=== PATIENT | female | born 1945 | race Caucasian/White ===

== ENCOUNTER 2016-08-08 18:43 | Emergency (ER) | payer MEDICARE, BC ==
[2016-08-08] MEDS ORDERED: NS 0.9% 1000 ML* 2,000 ML IV ONE (20:57)
[2016-08-08 21:44] LABS: Hematocrit 29 % (35-47); Hemoglobin 9.4 g/dl (12.0-16.0); Mean Corpuscular HGB Conc 32 g/dl (31-36); Mean Corpuscular Hemoglobin 27 pg (27-31); Mean Corpuscular Volume 83 fL (80-97); Mean Platelet Volume 8 um3 (7.4-10.4); Red Blood Count 3.51 10^6/ul (4.0-5.4); Red Cell Distribution Width 21 % (10.5-15); White Blood Count 4.5 10^3/ul (3.5-10.8)
[2016-08-08 21:56] LABS: Albumin 3.2 g/dL (3.2-5.2); BUN/Creatinine Ratio 23.8 (8-20); Calcium 9.3 mg/dL (8.6-10.3); EGFR African American 66.3 (>60); EGFR Non-African American 51.5 (>60); Globulin 3.1 g/dL (2-4); Potassium 4.3 mmol/L (3.5-5.0); Total Bilirubin 0.6 mg/dL (0.2-1.0); Total Protein 6.3 g/dL (6.4-8.9)
--- NOTE | 2016-08-08 22:00 | RAD ---
HISTORY: Fever COMPARISONS: August 30, 2015 VIEWS:1: Single frontal portable view of the chest at 9:40 PM FINDINGS: LINES AND TUBES: There is a right-sided chest port from a subclavian approach with tip overlying the superior vena cava. CARDIOMEDIASTINAL SILHOUETTE: The cardiomediastinal silhouette is normal for portable technique. PLEURA: There is a small right pleural effusion LUNG PARENCHYMA: There is patchy alveolar opacification of the right lung base ABDOMEN: The upper abdomen is clear. There is no subphrenic gas. BONES AND SOFT TISSUES: No bone or soft tissue abnormalities are noted. IMPRESSION: SMALL RIGHT PLEURAL EFFUSION WITH PATCHY RIGHT BASILAR ATELECTASIS VERSUS CONSOLIDATION
[2016-08-09 00:08] VITALS: BP 110/55
[2016-08-09 00:35] LABS: Urine Bacteria Absent (Absent); Urine Bilirubin Negative (Negative); Urine Glucose Negative (Negative); Urine Nitrite Negative (Negative)
[2016-08-09] MEDS ORDERED: Sulfamethox/Trimethoprim DS 800/160* TAB PO ONE (00:53)
--- NOTE | 2016-08-09 01:19 | ED ---
Vadim Buitrago Aidan, scribed for Cresencio Musa on 08/08/16 at 2123 . HPI Febrile Illness - HPI Summary HPI Summary: 71 y/o female presents to the ED with a complaint of an acute, constant, mild fever of 100.7 that began today. Yesterday, she had some abdominal pain that was alleviated by a drainage procedure on the left side to drain 1500ml of fluid around the stomach. Pt is currently receiving chemotherapy for stage 4 breast cancer that has metastasized to the omentum, bone, and lungs and was advised to come in for her fever. Hx of portocath. Pt denies any sore throat or leg edema. - History of Current Complaint Chief Complaint: EDFever Time Seen by Provider: 08/08/16 20:29 Hx Obtained From: Patient, Family/Tower Foreman - Onset/Duration: Started Hours Ago, Still Present Timing: Constant - fever of 100.7 Temperature: 100.7 F - 100.5 B4 Initial Severity: Mild Current Severity: Mild Pain Intensity: 0 Pain Scale Used: 0-10 Numeric Aggravating Factors: Unknown - however, possibly chemotherapy Alleviating Factors: Other: - unknown Associated Signs and Symptoms: Other: - abdominal pain yesterday that subsided after her drainage procedure - Risk Factors Serious Bacterial Infection Risk Factors: Chemotherapy - Allergy/Home Medications Allergies/Adverse Reactions: Allergies Allergy/AdvReac Type Severity Reaction Status Date / Time Clarithromycin Allergy Intermediate Nausea And Verified 08/08/16 20:09 Vomiting Adhesive Tape Allergy Mild Itching Verified 08/08/16 20:09 Levofloxacin [From Levaquin] Allergy Unknown Verified 08/08/16 20:09 Reaction Details Niacin Allergy Flushing Verified 08/08/16 20:09 Simvastatin [From Zocor] Allergy Palpitation Verified 08/08/16 20:09 s PMH/Surg Hx/FS Hx/Imm Hx Endocrine/Hematology History: Denies: Hx Diabetes, Hx Systemic Lupus Erythematosus Cardiovascular History: Denies: Hx Congestive Heart Failure, Hx Hypertension, Hx Pacemaker/ICD Comment Only: Other Cardiovascular Problems/Disorders - denies chest pain any problems Respiratory History: Reports: Other Respiratory Problems/Disorders - RIGHT LUNG NODULE BONE CANCER, CHRONIC RIGHT PLEURAL EFFUSION GI History: Reports: Hx Gastroesophageal Reflux Disease, Other GI Disorders - GERD History: Denies: Hx Dialysis, Hx Renal Disease Musculoskeletal History: Reports: Hx Arthritis - HANDS, Other Musculoskeletal History - CANCER BILAT FEMUR, SPINE, BILAT HUMERUS Denies: Hx Rheumatoid Arthritis Sensory History: Reports: Hx Contacts or Glasses - READING GLASSES Denies: Hx Hearing Aid Opthamlomology History: Reports: Hx Contacts or Glasses - READING GLASSES Psychiatric History: Reports: Hx Depression Denies: Hx Panic Disorder - Cancer History Cancer Type, Location and Year: Breast CA first dx 2001, Bone dx September 2011, spine, several ribs left femur Hx Chemotherapy: Yes - CURRENTLY TAKING PO AND Q12 WEEK INFUSION- 02/02/15 Hx Radiation Therapy: Yes Hx Palliative Cancer Treatment: Yes - Surgical History Surgery Procedure, Year, and Place: Hysterectomy 1989. lumpectomy R breast 2001. POWER PORT 2001, 2011 [facility] Hx Anesthesia Reactions: No Infectious Disease History: No Infectious Disease History: Denies: Traveled Outside the [place] in Last 30 Days - Family History Known Family History: Positive: Other - [place] - Social History Occupation: Retired Lives: With Family Alcohol Use: None Substance Use Type: Reports: None Hx Tobacco Use: No Smoking Status (MU): Former Smoker Type: Cigarettes Length of Time of Smoking/Using Tobacco: 17 YRS Have You Smoked in the Last Year: No Review of Systems Positive: Fever. Negative: Chills, Fatigue, Skin Diaphoresis Eyes: Negative ENT: Negative Cardiovascular: Negative Respiratory: Negative Positive: Abdominal Pain - subsided. Negative: Vomiting, Diarrhea, Nausea Genitourinary: Negative Musculoskeletal: Negative Skin: Negative Neurological: Negative Psychological: Normal All Other Systems Reviewed And Are Negative: Yes Physical Exam Triage Information Reviewed: Yes Vital Signs On Initial Exam: Initial Vitals Temp Pulse Resp BP Pulse Ox 100.7 F 110 20 106/85 98 08/08/16 18:46 08/08/16 18:46 08/08/16 18:46 08/08/16 18:46 08/08/16 18:46 Vital Signs Reviewed: Yes Appearance: Positive: Well-Appearing, No Pain Distress Skin: Positive: Warm, Skin Color Reflects Adequate Perfusion, Dry Head/Face: Positive: Normal Head/Face Inspection Eyes: Positive: Normal ENT: Positive: Normal ENT inspection Neck: Positive: Supple, Nontender Respiratory/Lung Sounds: Positive: Clear to Auscultation, Breath Sounds Present Cardiovascular: Positive: RRR Abdomen Description: Positive: Nontender, Soft, Other: - dressing on left flank Bowel Sounds: Positive: Present Musculoskeletal: Positive: Normal Neurological: Positive: Normal Psychiatric: Positive: Affect/Mood Appropriate Diagnostics - Vital Signs Vital Signs Temp Pulse Resp BP Pulse Ox 08/08/16 20:30 99 F 109 16 115/52 96 08/08/16 20:00 99.7 F 112 16 97/41 97 08/08/16 18:46 100.7 F 110 20 106/85 98 - Laboratory Result Diagrams: 08/08/16 21:31 08/08/16 21:31 Lab Statement: Any lab studies that have been ordered have been reviewed, and results considered in the medical decision making process. - Radiology CHEST XR Xray Interpretation: Positive (See Comments) - IMPRESSION: SMALL RIGHT PLEURAL EFFUSION WITH PATCHY RIGHT BASILAR ATELECTASIS VERSUS CONSOLIDATION Radiology Interpretation Completed By: Radiologist Course/Dx - Course Course Of Treatment: This is a 71 y/o patient with a mild fever of 100.7. She has metastatic breast cancer that has metastasized to the omentum, bone, and lungs. Yesterday, she had 1500ml of fluid surrounding her stomach drained. The drainage procedure alleviated abdominal pain she had. Chest x-ray indicated a small right pleural effusion with patchy right basilar atelectasis. She had paracentesis. She will be discharged with bactrim, unlikely SBP. Dx of UTI and metastatic breast CA. - Diagnoses Provider Diagnoses: UTI (urinary tract infection), Metastatic breast cancer Discharge - Discharge Plan Condition: Stable Disposition: HOME Discharge Disposition Comment: Please follow up with your PCP and return if symptoms worsen within 72hrs. Prescriptions: Sulfamethox/Trimethoprim DS* [Bactrim DS 800/160 TAB*] 1 tab PO BID 7 Days Sulfamethox/Trimethoprim DS* [Bactrim DS 800/160 TAB*] 1 tab PO BID #14 tab The documentation as recorded by the Vadim resendez Aidan accurately reflects the service I personally performed and the decisions made by , Cresencio Musa.
== END 2016-08-09 01:45 | disposition home or self-care (01) ==
LOC: ED 18:43
DX: N39.0 Urinary tract infection, site not specified (principal); C50.919 Malignant neoplasm of unspecified site of unspecified female breast; Z92.21 Personal history of antineoplastic chemotherapy; R10.84 Generalized abdominal pain
CPT/HCPCS: 36415; 71010; 80053; 81003; 81015; 83605; 83880; 84484; 85025; 85610; 85730; 87040; 87086; 87502; 99284; A9270-GY; J1642

== ENCOUNTER 2016-08-19 11:39 | Inpatient (IN) | payer MEDICARE, BC ==
--- NOTE | 2016-08-19 13:41 | RAD ---
INDICATION: Altered mental status. COMPARISON: Comparison is made with a prior CT of the chest from August 02, 2016 and a prior chest x-ray study from August 15, 2016. TECHNIQUE: A portable view of the chest was obtained. FINDINGS: Cardiac and mediastinal contours appear to be within normal limits. There is a power port central venous catheter present on the right side. The catheter tip projects over the right atrium. There is a small right pleural effusion and basilar infiltrate. The lungs are underinflated. There is sclerotic change within the osseous structures consistent with metastatic disease as noted on the prior CT of the chest. IMPRESSION: 1. SMALL RIGHT PLEURAL EFFUSION AND BASILAR INFILTRATE. 2. SCLEROTIC OSSEOUS METASTATIC DISEASE.
[2016-08-19 14:06] LABS: Hematocrit 25 % (35-47); Hemoglobin 8.4 g/dl (12.0-16.0); Mean Corpuscular HGB Conc 33 g/dl (31-36); Mean Corpuscular Hemoglobin 27 pg (27-31); Mean Corpuscular Volume 83 fL (80-97); Red Blood Count 3.06 10^6/ul (4.0-5.4); Red Cell Distribution Width 22 % (10.5-15); White Blood Count 6.6 10^3/ul (3.5-10.8)
[2016-08-19 14:07] LABS: Comments Flag Yes
[2016-08-19 14:08] LABS: Add Diff/Slide Review? Slide Review Added
[2016-08-19 14:22] LABS: Albumin 2.7 g/dL (3.2-5.2); BUN/Creatinine Ratio 28.2 (8-20); C Reactive Protein 272.64 mg/L (< 5.00); Calcium 8.5 mg/dL (8.6-10.3); EGFR African American 39.9 (>60); Potassium 4.2 mmol/L (3.5-5.0); Total Bilirubin 4.4 mg/dL (0.2-1.0); Total Protein 5.7 g/dL (6.4-8.9)
[2016-08-19 14:24] LABS: Troponin I 0.02 ng/mL (<0.04)
[2016-08-19 14:29] LABS: Mean Platelet Volume 11 um3 (7.4-10.4)
[2016-08-19] MEDS ORDERED: NS 0.9% 1000 ML* 1,000 ML IV ONE (14:45)
[2016-08-19] MEDS ORDERED: Cefepime(*) 1 GM in NS 0.9% 50 ML* 50 ML IVPB ONE (14:47)
[2016-08-19] MEDS ORDERED: NS 0.9% 50 ML* 50 ML ONE (15:12)
[2016-08-19] MEDS ORDERED: LORazepam TAB(*) 0.5 MG PO PRN (16:38)
[2016-08-19] MEDS ORDERED: oxyCODONE TAB* 5 MG TAB PO PRN (16:38)
[2016-08-19] MEDS: Cefepime(*) 2 GM in NS 0.9% 50 ML* 50 ML IVPB SCH (17:42)
[2016-08-19] MEDS: Omeprazole CAP* 20 MG PO SCH (19:45)
[2016-08-19] MEDS: NS 0.9% 1000 ML* 1,000 ML IV SCH (19:57)
[2016-08-19 21:47] LABS: Urine Bacteria Absent (Absent); Urine Bilirubin 1+ (Negative); Urine Glucose 1+(50 mg/dL) (Negative); Urine Nitrite Negative (Negative)
--- NOTE | 2016-08-19 22:18 | ED ---
Chip Buitrago Michael, scribed for Aydin Haines MD on 08/19/16 at 1447 . Abdominal Pain/Female - HPI Summary HPI Summary: 71 y/o female was BIBA to the ED presenting with constant abd pain for the past 2 weeks. The pt reports that the pain is located in the bilateral LQ. She has a hx of ascites and had diagnostic and therapeutic paracentesis 5 days ago with resultant ca cells in the ascitic fluid. Pt with hx of Stage IV breast ca metastatic to bone, lung. She also c/o SOB, nausea, vomiting for 2 weeks, and decreased hydration. She is currently undergoing chemotherapy once per week. Pt with recent diagnosis of PNA and currently being treated with abx. - History of Current Complaint Chief Complaint: EDAbdPain Stated Complaint: SOB Time Seen by Provider: 08/19/16 13:08 Hx Obtained From: Patient, EMS, Medical Records Onset/Duration: Gradual Onset, Lasting Weeks, Still Present Timing: Constant Severity Initially: Mild Severity Currently: Mild Pain Intensity: 3 Pain Scale Used: 0-10 Numeric Location: Discrete At: RLQ, Discrete At: LLQ Radiates: No Aggravating Factor(s): Nothing Alleviating Factor(s): Nothing Associated Signs and Symptoms: Positive: Nausea, Vomiting, Other: - abd pain. dehydration. fever. Allergies/Adverse Reactions: Allergies Allergy/AdvReac Type Severity Reaction Status Date / Time Clarithromycin Allergy Intermediate Nausea And Verified 08/14/16 09:03 Vomiting Adhesive Tape Allergy Mild Itching Verified 08/14/16 09:03 Levofloxacin [From Levaquin] Allergy Unknown Verified 08/14/16 09:03 Reaction Details Niacin Allergy Flushing Verified 08/14/16 09:03 Simvastatin [From Zocor] Allergy Palpitation Verified 08/14/16 09:03 s Home Medications: Home Medications [id number] [Beano] 1 tab PO DAILY PRN 08/19/16 [History Confirmed ] Aspirin EC Low Dose* [Ecotrin EC Low Dose 81 MG*] 81 mg PO DAILY 08/19/16 [ History Confirmed 08/19/16] Docusate CAP* [Colace Cap*] 100 - 200 mg PO BEDTIME PRN 08/19/16 [History Confirmed 08/19/16] Ibuprofen TAB* [Advil TAB*] 400 mg PO DAILY PRN 08/19/16 [History Confirmed ] Lactulose* 30 ml PO BID 08/19/16 [History Confirmed 08/19/16] Omeprazole CAP* [Prilosec CAP* 20 MG] 40 mg PO BID 08/19/16 [History Confirmed 08/19/16] Polyethylene Glycol 3350* [Miralax*] 17 gm PO DAILY PRN 08/19/16 [History Confirmed 08/19/16] Scopolamine 1.5 mg* PATCH* [Transderm-Scop 1.5 mg Patch*] 1 patch TRANSDERM Q72H PRN 08/19/16 [History Confirmed 08/19/16] Simethicone [Gas-X] 80 mg PO DAILY PRN 08/19/16 [History Confirmed 08/19/16] PMH/Surg Hx/FS Hx/Imm Hx Endocrine/Hematology History: Denies: Hx Diabetes, Hx Systemic Lupus Erythematosus Cardiovascular History: Denies: Hx Congestive Heart Failure, Hx Hypertension, Hx Pacemaker/ICD Comment Only: Other Cardiovascular Problems/Disorders - POWER PORT, RIGHT Respiratory History: Reports: Hx Pneumonia, Other Respiratory Problems/ Disorders - RIGHT LUNG NODULE BONE CANCER, CHRONIC RIGHT PLEURAL EFFUSION GI History: Reports: Hx Gastroesophageal Reflux Disease, Other GI Disorders - GERD History: Reports: Other Problems/Disorders - UTI Denies: Hx Dialysis, Hx Renal Disease Musculoskeletal History: Reports: Hx Arthritis - HANDS, Other Musculoskeletal History - CANCER BILAT FEMUR, SPINE, BILAT HUMERUS Denies: Hx Rheumatoid Arthritis Sensory History: Reports: Hx Contacts or Glasses - READING GLASSES Denies: Hx Hearing Aid Opthamlomology History: Reports: Hx Contacts or Glasses - READING GLASSES Psychiatric History: Reports: Hx Depression Denies: Hx Panic Disorder - Cancer History Cancer Type, Location and Year: Breast CA first dx 2001, Bone dx September 2011, spine, several ribs left femur Hx Chemotherapy: Yes - CURRENTLY TAKING PO AND Q12 WEEK INFUSION- 02/02/15 Hx Radiation Therapy: Yes Hx Palliative Cancer Treatment: Yes - Surgical History Surgery Procedure, Year, and Place: Hysterectomy 1989. lumpectomy R breast 2001. POWER PORT 2001, 2011 [facility] Hx Anesthesia Reactions: No Infectious Disease History: Denies: Traveled Outside the [place] in Last 30 Days - Family History Known Family History: Positive: Other - [place] - Social History Occupation: Retired Lives: With Family Alcohol Use: None Substance Use Type: Reports: Prescribed Hx Tobacco Use: No Smoking Status (MU): Former Smoker Type: Cigarettes Length of Time of Smoking/Using Tobacco: 17 YRS Have You Smoked in the Last Year: No Review of Systems Positive: Shortness Of Breath Positive: Abdominal Pain, Vomiting, Nausea Positive: other - decreased urination Positive: Weakness All Other Systems Reviewed And Are Negative: Yes Physical Exam Triage Information Reviewed: Yes Vital Signs On Initial Exam: Initial Vitals Temp Pulse Resp BP Pulse Ox 99.1 F 87 18 102/43 100 08/19/16 11:52 08/19/16 11:52 08/19/16 11:52 08/19/16 11:52 08/19/16 11:52 Vital Signs Reviewed: Yes Appearance: Positive: Ill-Appearing - chronic ill appearing. cachectic Skin: Positive: Warm, Skin Color Reflects Adequate Perfusion, Dry, Other - small pin point macular red rash on mid chest. Head/Face: Positive: Normal Head/Face Inspection Eyes: Positive: EOMI, LAURA, Conjunctiva Clear ENT: Positive: Pharynx normal, TMs normal Neck: Positive: Supple, Nontender Respiratory/Lung Sounds: Positive: Other - mild diffuse crackles. Cardiovascular: Positive: RRR, Pulses are Symmetrical in both Upper and Lower Extremities. Negative: Murmur, Rub Abdomen Description: Positive: No Organomegaly, Soft, Distended - with moderate fluid, Other: - + generalized ttp. Negative: Guarding, Peritoneal Signs Bowel Sounds: Positive: Present Musculoskeletal: Positive: Strength/ROM Intact, Other - ecchymosis of dorsum 5th metacarpal with no tenderness to palpation. nml ROM. no deformity. Neurological: Positive: Sensory/Motor Intact, Alert, Oriented to Person Place, Time, Normal Gait. Negative: Cerebellar Dysfunction Psychiatric: Positive: Affect/Mood Appropriate - [place] Coma Scale Coma Scale Total: 15 Diagnostics - Vital Signs Vital Signs Temp Pulse Resp BP Pulse Ox 08/19/16 12:00 87 100 08/19/16 11:58 87 100 08/19/16 11:52 99.1 F 87 18 102/43 100 - Laboratory Lab Results: Lab Results 08/19/16 08/19/16 08/19/16 Range/Units 13:03 13:03 13:03 WBC 6.6 (3.5-10.8) 10^3/ul RBC 3.06 L (4.0-5.4) 10^6/ul Hgb 8.4 L (12.0-16.0) g/dl Hct 25 L (35-47) % MCV 83 (80-97) fL MCH 27 (27-31) pg MCHC 33 (31-36) g/dl RDW 22 H (10.5-15) % Plt Count 15 L* D (150-450) 10^3/ul MPV 11 H (7.4-10.4) um3 Neut % (Auto) 86.7 H (38-83) % Lymph % (Auto) 6.2 L (25-47) % [place] % (Auto) 5.9 (1-9) % Eos % (Auto) 0.5 (0-6) % Baso % (Auto) 0.7 (0-2) % Absolute Neuts (auto) 5.7 (1.5-7.7) 10^3/ul Absolute Lymphs (auto) 0.4 L (1.0-4.8) 10^3/ul Absolute Monos (auto) 0.4 (0-0.8) 10^3/ul Absolute Eos (auto) 0 (0-0.6) 10^3/ul Absolute Basos (auto) 0 (0-0.2) 10^3/ul Absolute Nucleated RBC 0.01 10^3/ul Nucleated RBC % 0.2 Hem Pathologist Commnt Pending INR (Anticoag Therapy) 2.49 H (0.89-1.11) APTT Cancelled Sodium 128 L (133-145) mmol/L Potassium 4.2 (3.5-5.0) mmol/L Chloride 99 L (101-111) mmol/L Carbon Dioxide 19 L (22-32) mmol/L Anion Gap 10 (2-11) mmol/L BUN 46 H (6-24) mg/dL Creatinine 1.63 H (0.51-0.95) mg/dL Est GFR ( Amer) 39.9 (>60) Est GFR (Non-Af Amer) 31.0 (>60) BUN/Creatinine Ratio 28.2 H (8-20) Glucose 87 (70-100) mg/dL Lactic Acid (0.5-2.0) mmol/L Calcium 8.5 L (8.6-10.3) mg/dL Total Bilirubin 4.40 H (0.2-1.0) mg/dL AST 327 H (13-39) U/L ALT 155 H (7-52) U/L Alkaline Phosphatase 189 H (34-104) U/L Lactate Dehydrogenase 640 H (140-271) U/L Total Creatine Kinase 40 (10-223) U/L CK-MB (CK-2) 1.3 (0.6-6.3) ng/mL Troponin I 0.02 (<0.04) ng/mL C-Reactive Protein 272.64 H (< 5.00) mg/L Total Protein 5.7 L (6.4-8.9) g/dL Albumin 2.7 L (3.2-5.2) g/dL Globulin 3.0 (2-4) g/dL Albumin/Globulin Ratio 0.9 L (1-3) Urine Color Urine Appearance Urine pH (5-9) Ur Specific [place] (1.010-1.030) Urine Protein (Negative) Urine Ketones (Negative) Urine Blood (Negative) Urine Nitrate (Negative) Urine Bilirubin (Negative) Urine Urobilinogen (Negative) Ur Leukocyte Esterase (Negative) Urine WBC (Auto) (Absent) Urine RBC (Auto) (Absent) Ur Squamous Epith Cells (Absent) Ur Renal Epithelial Cell (Absent) Urine Bacteria (Absent) Hyaline Casts (Absent) Urine Glucose (Negative) Blood Type Antibody Screen 08/19/16 08/19/16 08/19/16 Range/Units 13:03 13:03 13:09 WBC (3.5-10.8) 10^3/ul RBC (4.0-5.4) 10^6/ul Hgb (12.0-16.0) g/dl Hct (35-47) % MCV (80-97) fL MCH (27-31) pg MCHC (31-36) g/dl RDW (10.5-15) % Plt Count (150-450) 10^3/ul MPV (7.4-10.4) um3 Neut % (Auto) (38-83) % Lymph % (Auto) (25-47) % [place] % (Auto) (1-9) % Eos % (Auto) (0-6) % Baso % (Auto) (0-2) % Absolute Neuts (auto) (1.5-7.7) 10^3/ul Absolute Lymphs (auto) (1.0-4.8) 10^3/ul Absolute Monos (auto) (0-0.8) 10^3/ul Absolute Eos (auto) (0-0.6) 10^3/ul Absolute Basos (auto) (0-0.2) 10^3/ul Absolute Nucleated RBC 10^3/ul Nucleated RBC % Hem Pathologist Commnt INR (Anticoag Therapy) (0.89-1.11) APTT Sodium (133-145) mmol/L Potassium (3.5-5.0) mmol/L Chloride (101-111) mmol/L Carbon Dioxide (22-32) mmol/L Anion Gap (2-11) mmol/L BUN (6-24) mg/dL Creatinine (0.51-0.95) mg/dL Est GFR ( Amer) (>60) Est GFR (Non-Af Amer) (>60) BUN/Creatinine Ratio (8-20) Glucose (70-100) mg/dL Lactic Acid 2.1 H* (0.5-2.0) mmol/L Calcium (8.6-10.3) mg/dL Total Bilirubin (0.2-1.0) mg/dL AST (13-39) U/L ALT (7-52) U/L Alkaline Phosphatase (34-104) U/L Lactate Dehydrogenase (140-271) U/L Total Creatine Kinase (10-223) U/L CK-MB (CK-2) (0.6-6.3) ng/mL Troponin I (<0.04) ng/mL C-Reactive Protein (< 5.00) mg/L Total Protein (6.4-8.9) g/dL Albumin (3.2-5.2) g/dL Globulin (2-4) g/dL Albumin/Globulin Ratio (1-3) Urine Color Millicent Urine Appearance Cloudy Urine pH 5.0 (5-9) Ur Specific [place] 1.020 (1.010-1.030) Urine Protein 1+(30 mg/dl) H (Negative) Urine Ketones Trace H (Negative) Urine Blood Negative (Negative) Urine Nitrate Negative (Negative) Urine Bilirubin 1+ H (Negative) Urine Urobilinogen Positive H (Negative) Ur Leukocyte Esterase Negative (Negative) Urine WBC (Auto) 2+(11-20/hpf) H (Absent) Urine RBC (Auto) Trace(0-2/hpf) (Absent) Ur Squamous Epith Cells Present H (Absent) Ur Renal Epithelial Cell Present H (Absent) Urine Bacteria Absent (Absent) Hyaline Casts Present H (Absent) Urine Glucose 1+(50 mg/dl) H (Negative) Blood Type AB Positive Antibody Screen Negative 08/19/16 Range/Units 15:20 WBC (3.5-10.8) 10^3/ul RBC (4.0-5.4) 10^6/ul Hgb (12.0-16.0) g/dl Hct (35-47) % MCV (80-97) fL MCH (27-31) pg MCHC (31-36) g/dl RDW (10.5-15) % Plt Count (150-450) 10^3/ul MPV (7.4-10.4) um3 Neut % (Auto) (38-83) % Lymph % (Auto) (25-47) % [place] % (Auto) (1-9) % Eos % (Auto) (0-6) % Baso % (Auto) (0-2) % Absolute Neuts (auto) (1.5-7.7) 10^3/ul Absolute Lymphs (auto) (1.0-4.8) 10^3/ul Absolute Monos (auto) (0-0.8) 10^3/ul Absolute Eos (auto) (0-0.6) 10^3/ul Absolute Basos (auto) (0-0.2) 10^3/ul Absolute Nucleated RBC 10^3/ul Nucleated RBC % Hem Pathologist Commnt INR (Anticoag Therapy) (0.89-1.11) APTT 55.4 H Sodium (133-145) mmol/L Potassium (3.5-5.0) mmol/L Chloride (101-111) mmol/L Carbon Dioxide (22-32) mmol/L Anion Gap (2-11) mmol/L BUN (6-24) mg/dL Creatinine (0.51-0.95) mg/dL Est GFR ( Amer) (>60) Est GFR (Non-Af Amer) (>60) BUN/Creatinine Ratio (8-20) Glucose (70-100) mg/dL Lactic Acid (0.5-2.0) mmol/L Calcium (8.6-10.3) mg/dL Total Bilirubin (0.2-1.0) mg/dL AST (13-39) U/L ALT (7-52) U/L Alkaline Phosphatase (34-104) U/L Lactate Dehydrogenase (140-271) U/L Total Creatine Kinase (10-223) U/L CK-MB (CK-2) (0.6-6.3) ng/mL Troponin I (<0.04) ng/mL C-Reactive Protein (< 5.00) mg/L Total Protein (6.4-8.9) g/dL Albumin (3.2-5.2) g/dL Globulin (2-4) g/dL Albumin/Globulin Ratio (1-3) Urine Color Urine Appearance Urine pH (5-9) Ur Specific [place] (1.010-1.030) Urine Protein (Negative) Urine Ketones (Negative) Urine Blood (Negative) Urine Nitrate (Negative) Urine Bilirubin (Negative) Urine Urobilinogen (Negative) Ur Leukocyte Esterase (Negative) Urine WBC (Auto) (Absent) Urine RBC (Auto) (Absent) Ur Squamous Epith Cells (Absent) Ur Renal Epithelial Cell (Absent) Urine Bacteria (Absent) Hyaline Casts (Absent) Urine Glucose (Negative) Blood Type Antibody Screen Result Diagrams: 08/19/16 13:03 08/19/16 13:03 Lab Statement: Any lab studies that have been ordered have been reviewed, and results considered in the medical decision making process. - Radiology CXR Xray Interpretation: Positive (See Comments) - 1. SMALL RIGHT PLEURAL EFFUSION AND BASILAR INFILTRATE. 2. SCLEROTIC OSSEOUS METASTATIC DISEASE. Radiology Interpretation Completed By: Radiologist - EKG EK EKG Rhythm: Sinus Rhythm - 88 Ectopy: PACs EKG Interpretation: no acute ischemic changes Abdominal Pain Fem Course/Dx - Course Course Of Treatment: discussed with Dr. Tompkins office at 1517- The consulting marine engineer oncologist will come to ED to evaluate her patient. After evaluation Dr. Davis will accept the patient as an admission. PA from office will come and complete admission - Diagnoses Provider Diagnoses: Metastatic cancer, Patient on antineoplastic chemotherapy regimen, Ascites, Weakness, Anorexia Discharge - Discharge Plan Condition: Stable Disposition: ADMITTED TO [facility] Discharge Disposition Comment: Dr. Davis accepts patient as an admission The documentation as recorded by the Chip resendez Michael accurately reflects the service I personally performed and the decisions made by , Aydin Haines MD.
[2016-08-20] MEDS: Cefepime(*) 2 GM in NS 0.9% 50 ML* 50 ML IVPB SCH (04:20)
[2016-08-20 05:05] LABS: Albumin 2.5 g/dL (3.2-5.2); Direct Bilirubin 3.1 mg/dL (0.03-0.18); Indirect Bilirubin 1.7 mg/dL (0.3-1.0); Total Bilirubin 4.8 mg/dL (0.2-1.0); Total Protein 5.5 g/dL (6.4-8.9)
[2016-08-20 05:25] LABS: Hematocrit 23 % (35-47); Hemoglobin 7.8 g/dl (12.0-16.0); Mean Corpuscular HGB Conc 33 g/dl (31-36); Mean Corpuscular Hemoglobin 27 pg (27-31); Mean Corpuscular Volume 82 fL (80-97); Mean Platelet Volume 13 um3 (7.4-10.4); Red Blood Count 2.86 10^6/ul (4.0-5.4); Red Cell Distribution Width 22 % (10.5-15)
[2016-08-20 05:26] LABS: Add Diff/Slide Review? Manual Diff Added; Comments Flag Yes
[2016-08-20] MEDS: Levothyroxine TAB* 100 MCG TAB PO SCH (05:33)
[2016-08-20 05:52] LABS: Immature Granulocytes 6 % (0-9); Metamyelocytes % 3 % (0-2); Myelocytes % 3 % (0-1); Neutrophil % 79 % (38-83); Reactive Lymph % 3 % (0-6)
[2016-08-20 05:53] LABS: Hypochromasia 1+; Polychromasia 1+
[2016-08-20 05:54] LABS: Schistocytes 1+
[2016-08-20 05:55] LABS: Add Path Review? YES
[2016-08-20] MEDS: NS 0.9% 1000 ML* 1,000 ML IV SCH (06:42)
[2016-08-20] MEDS ORDERED: NS 0.9% 1000 ML* 1,000 ML IV SCH (11:04)
[2016-08-20] MEDS: LORazepam TAB(*) 0.5 MG PO PRN (12:40)
[2016-08-20] MEDS: Omeprazole CAP* 20 MG PO SCH ×3 (12:42→21:42)
--- NOTE | 2016-08-20 14:10 | PN ---
<LauraEmily - Last Filed: 08/20/16 14:44> Infectious Disease Note Date of Evaluation: 08/20/16 SOAP: Consult Reason: ?Antibiotics for Pneumonia Consult Requested by: Dr. Tompkins Consult Attending: Dr. Jasmeet Short #HPI 71 year old lady with T2N1M0 breast cancer ER/DC+ and Her2- dx 2001, s/p partial mastectomy, radiation, chemo, tamixofen, metastasis to bone as of 2011, slow progression of disease throughout 2016 with now evidence of metastasis to liver, lungs, on Gemcitabine (last dose 08/15/16) admitted after progressive failure to thrive, increasing abdominal pain and ascites, and fevers and cough. Per history corroborated through family at bed side, 2 visits to the ED on 08/07 and 08/15 for fevers (100.7 to 100.3, respectively), on first visit treated for UTI with 7 day course of bactrim, and on second visit given bilateral infiltrates on CXR, started on Cefdinir x 10 day course, but brought into ED by family after worsening abdominal distension and pain, but no clear change in respiratory status. CXR done with patchy infiltrates and IV Cefepime started, discussion re: hospice initiated with family. ID is consulted for management of antibiotics. When examined by team at bedside, patient denies fevers/chills but mild cough with mucous like texture, abdominal discomfort, subjective dyspnea, and lower back pain. #RoS Gen: denies fevers, chills HEENT: denies vision problems, GARCIA Respiratory: +dyspnea +cough Cardiac: negative chest pain or palpitations GI: denies n/v/d : denies dysuria MSK: +LBP Neuro: denies sensory or motor deficits Psych: denies depression #PMH/PSH as above #FH n/c #Social Hx denies toxic habits lives with family #Home Meds Atorvastatin* [Lipitor*] 80 mg PO QAM 01/18/13 [History Confirmed 08/19/16] Calcium Carbonate-Vitamin D [Calcium 600 + D] 1 tab PO BID 01/18/13 [History Confirmed 08/19/16] Levothyroxine TAB* [Synthroid 100 MCG TAB*] 100 mcg PO 0800 01/18/13 [History Confirmed 08/19/16] Sertraline* [Zoloft*] 100 mg PO QAM 01/18/13 [History Confirmed 08/19/16] Diltiazem HCl Extended Release [Diltiazem HCl] 360 mg PO DAILY 09/20/15 [ History Confirmed 08/19/16] Cefdinir cap (NF) [Cefdinir 300 MG cap (NF)] 300 mg PO BID #20 cap 08/15/16 [Rx Confirmed 08/19/16] Khost-A-Nhcujijiyooho [Beano] 1 tab PO DAILY PRN 08/19/16 [History Confirmed ] Aspirin EC Low Dose* [Ecotrin EC Low Dose 81 MG*] 81 mg PO DAILY 08/19/16 [ History Confirmed 08/19/16] Docusate CAP* [Colace Cap*] 100 - 200 mg PO BEDTIME PRN 08/19/16 [History Confirmed 08/19/16] Ibuprofen TAB* [Advil TAB*] 400 mg PO DAILY PRN 08/19/16 [History Confirmed ] Lactulose* 30 ml PO BID 08/19/16 [History Confirmed 08/19/16] Omeprazole CAP* [Prilosec CAP* 20 MG] 40 mg PO BID 08/19/16 [History Confirmed 08/19/16] Polyethylene Glycol 3350* [Miralax*] 17 gm PO DAILY PRN 08/19/16 [History Confirmed 08/19/16] Scopolamine 1.5 mg* PATCH* [Transderm-Scop 1.5 mg Patch*] 1 patch TRANSDERM Q72H PRN 08/19/16 [History Confirmed 08/19/16] Simethicone [Gas-X] 80 mg PO DAILY PRN 08/19/16 [History Confirmed 08/19/16] #Vitals Temp Pulse Resp BP Pulse Ox 36.2 C 94 16 122/53 96 08/20/16 12:45 08/20/16 12:45 08/20/16 12:45 08/20/16 12:45 08/20/16 12:45 #Physical Exam Gen: bald cachectic woman lying in bed NAD HEENT: PERRLA EOMI good dentition without oral lesions no cervical LA Respiratory: decreased breath sounds on the right, mild scattered wheezing Cardiac: chemoport c/d/i, tachy nl s1 s2 no r/m/g Abd: tense distended ab with tympanicity, hepatomegaly 3 cm below right costal margin, hypoactive BS MSK: no erythema/swelling/ttp to shoulders, fingers, knees, ankles, back Skin/extremities: no rashes wwp throughout Neuro: AAOx3. no focal deficits Psych: anxious #Current Meds Cefepime HCl 2 gm/ Sodium (Chloride) 50 mls @ 100 mls/hr IVPB Q12H ON LICENSE OF [facility] Last Admin: 08/20/16 04:20 Dose: 100 mls/hr Sodium Chloride (Ns 0.9% 1000 Ml*) 1,000 mls @ 0 mls/hr IV PER RATE ALAINA PRN Reason: KVO Levothyroxine Sodium (Synthroid Tab*) 100 mcg PO 0600 ON LICENSE OF [facility] Last Admin: 08/20/16 05:33 Dose: 100 mcg Lorazepam (Ativan Tab(*)) 0.5 mg PO ONCE PRN PRN Reason: SLEEP Lorazepam (Ativan Tab(*)) 0.5 mg PO Q6H PRN PRN Reason: ANXIETY Last Admin: 08/20/16 12:40 Dose: 0.5 mg Omeprazole (Prilosec Cap*) 40 mg PO BID ON LICENSE OF [facility] Last Admin: 08/20/16 12:43 Dose: 20 mg Oxycodone HCl (Roxycodone Tab*) 5 mg PO Q8H PRN PRN Reason: PAIN - MODERATE Last Admin: 08/19/16 19:45 Dose: 5 mg #Allergies clarithromycin, levofloxacin niacin simvastatin adhesive tape #Data Laboratory Results - last 24 hr 08/19/16 08/19/16 08/19/16 13:03 13:03 13:03 WBC RBC Hgb Hct MCV MCH MCHC RDW Plt Count MPV Immature Gran % (Auto) Absolute Neuts (auto) Absolute Lymphs (auto) Absolute Monos (auto) Absolute Eos (auto) Absolute Basos (auto) Absolute Nucleated RBC Neutrophils % Lymphocytes % Reactive Lymphs % Monocytes % Metamyelocytes % Myelocytes % Nucleated RBCs/100 WBC Normal RBC Morphology Polychromasia Hypochromasia Schistocytes Hem Pathologist Commnt INR (Anticoag Therapy) 2.49 H APTT Cancelled Lactic Acid Total Bilirubin Direct Bilirubin Indirect Bilirubin AST ALT Alkaline Phosphatase Lactate Dehydrogenase 640 H Total Protein Albumin Globulin Albumin/Globulin Ratio Urine Color Urine Appearance Urine pH Ur Specific [place] Urine Protein Urine Ketones Urine Blood Urine Nitrate Urine Bilirubin Urine Urobilinogen Ur Leukocyte Esterase Urine WBC (Auto) Urine RBC (Auto) Ur Squamous Epith Cells Ur Renal Epithelial Cell Urine Bacteria Hyaline Casts Urine Glucose Blood Type Antibody Screen Crossmatch 08/19/16 08/19/16 08/19/16 13:03 13:03 13:09 WBC RBC Hgb Hct MCV MCH MCHC RDW Plt Count MPV Immature Gran % (Auto) Absolute Neuts (auto) Absolute Lymphs (auto) Absolute Monos (auto) Absolute Eos (auto) Absolute Basos (auto) Absolute Nucleated RBC Neutrophils % Lymphocytes % Reactive Lymphs % Monocytes % Metamyelocytes % Myelocytes % Nucleated RBCs/100 WBC Normal RBC Morphology Polychromasia Hypochromasia Schistocytes Hem Pathologist Commnt INR (Anticoag Therapy) APTT Lactic Acid 2.1 H* Total Bilirubin Direct Bilirubin Indirect Bilirubin AST ALT Alkaline Phosphatase Lactate Dehydrogenase Total Protein Albumin Globulin Albumin/Globulin Ratio Urine Color Millicent Urine Appearance Cloudy Urine pH 5.0 Ur Specific [place] 1.020 Urine Protein 1+(30 mg/dl) H Urine Ketones Trace H Urine Blood Negative Urine Nitrate Negative Urine Bilirubin 1+ H Urine Urobilinogen Positive H Ur Leukocyte Esterase Negative Urine WBC (Auto) 2+(11-20/hpf) H Urine RBC (Auto) Trace(0-2/hpf) Ur Squamous Epith Cells Present H Ur Renal Epithelial Cell Present H Urine Bacteria Absent Hyaline Casts Present H Urine Glucose 1+(50 mg/dl) H Blood Type AB Positive Antibody Screen Negative Crossmatch See Detail 08/19/16 08/20/16 08/20/16 15:20 04:30 04:30 WBC 8.0 RBC 2.86 L Hgb 7.8 L Hct 23 L MCV 82 MCH 27 MCHC 33 RDW 22 H Plt Count 11 L D MPV 13 H Immature Gran % (Auto) 6 Absolute Neuts (auto) 6.8 Absolute Lymphs (auto) 0.9 L Absolute Monos (auto) 0.3 Absolute Eos (auto) 0 Absolute Basos (auto) 0 Absolute Nucleated RBC 0.08 Neutrophils % 79 Lymphocytes % 8 L Reactive Lymphs % 3 Monocytes % 4 Metamyelocytes % 3 H Myelocytes % 3 H Nucleated RBCs/100 WBC 10 H Normal RBC Morphology Not Reportable Polychromasia 1+ Hypochromasia 1+ Schistocytes 1+ Hem Pathologist Commnt INR (Anticoag Therapy) APTT 55.4 H Lactic Acid Total Bilirubin 4.80 H Direct Bilirubin 3.10 H Indirect Bilirubin 1.7 H AST 398 H ALT 169 H Alkaline Phosphatase 187 H Lactate Dehydrogenase Total Protein 5.5 L Albumin 2.5 L Globulin 3.0 Albumin/Globulin Ratio 0.8 L Urine Color Urine Appearance Urine pH Ur Specific [place] Urine Protein Urine Ketones Urine Blood Urine Nitrate Urine Bilirubin Urine Urobilinogen Ur Leukocyte Esterase Urine WBC (Auto) Urine RBC (Auto) Ur Squamous Epith Cells Ur Renal Epithelial Cell Urine Bacteria Hyaline Casts Urine Glucose Blood Type Antibody Screen Crossmatch Microbiology 08/19/16 13:09 Urine Culture - Final Urine No Growth (<1,000 CFU/mL) CXR: By my read, patchy interstitial infiltrates @ bases without focal consolidation , mild right pleural effusion #Assessment: 71 year old lady with T2N1M0 breast cancer ER/DC+ and Her2- dx 2001, s/p partial mastectomy, radiation, chemo, tamixofen, metastasis to bone as of 2011, slow progression of disease throughout 2016 with now evidence of metastasis to liver, lungs, on Gemcitabine (last dose 08/15/16), admitted after recent episode of UTI/CAP and course of abx, with worsening abdominal distension and pain, worsening liver function with coagulopathy, anemia and thrombocytopenia without neutropenia, concerning for further progression of disease, started on IV Cefepime for patchy infiltrates on CXR and mild productive cough, ID consulted for management of antibiotics #?PNA -Pt with poor prognosis with metastatic disease and likely transitioning to hospice type care, per primary team -Degree of infiltrates on CXR is not overwhelming, cough could be multifactorial from plueral irritation from the effusion or ascites, and these URI symptoms could easily be viral, therefore would favor stopping antibiotics at this time, especially given goals of care are focusing towards comfort -Could obtain CRP and procalcitonin to further differentiate viral vs. bacterial -If fevers, worsening respiratory symptoms, any positive cultures or neutropenia with fever, should reassess need for antibiotics -The rest of oncologic care and work-up per primary team Discussed with Dr. Short Please do not hesitate to reach out with questions Thank you for this consult Sofie Sanchez PGY-2, Infectious Disease/[facility] <Han BURCIAGA,Jasmeet Long - Last Filed: 08/20/16 15:18> Infectious Disease Note SOAP: Patient interviewed and examined by me. Seen and discussed with Dr Sanchez, I agree with her full note above. In addition: 1. cough, occasionally productive of white sputum/bloody streaks, no evidence of infiltrate on CXR, ?due to right pleural effusion or ascites, pneumonia less likely ?bronchitis. Dc cefepime and follow symptoms here as well as fever curve. 2. chronic right pleural effusion R lung on CXR 3. metastatic breast cancer
[2016-08-21 05:39] LABS: Hematocrit 28 % (35-47); Hemoglobin 9.3 g/dl (12.0-16.0); Mean Corpuscular HGB Conc 33 g/dl (31-36); Mean Corpuscular Hemoglobin 28 pg (27-31); Mean Corpuscular Volume 84 fL (80-97); Red Blood Count 3.37 10^6/ul (4.0-5.4); Red Cell Distribution Width 21 % (10.5-15); White Blood Count 13.7 10^3/ul (3.5-10.8)
[2016-08-21 05:42] LABS: Comments Flag Yes
[2016-08-21 05:43] LABS: Add Diff/Slide Review? Manual Diff Added; Albumin 2.6 g/dL (3.2-5.2); BUN/Creatinine Ratio 30.8 (8-20); Calcium 7.9 mg/dL (8.6-10.3); Direct Bilirubin 4.2 mg/dL (0.03-0.18); EGFR African American 26.3 (>60); EGFR Non-African American 20.4 (>60); Potassium 5.3 mmol/L (3.5-5.0); Total Bilirubin 6.2 mg/dL (0.2-1.0); Total Protein 5.6 g/dL (6.4-8.9)
[2016-08-21 06:29] LABS: Immature Granulocytes 14 % (0-9); Metamyelocytes % 6 % (0-2); Myelocytes % 1 % (0-1); Neutrophil % 66 % (38-83); Promyelocytes % 1 %; Reactive Lymph % 1 % (0-6)
[2016-08-21 06:31] LABS: RBC Morphology Normal (Normal)
[2016-08-21 06:36] LABS: Mean Platelet Volume 12 um3 (7.4-10.4)
[2016-08-21] MEDS: Levothyroxine TAB* 100 MCG TAB PO SCH (07:30)
[2016-08-21] MEDS: Omeprazole CAP* 20 MG PO SCH ×3 (07:41→21:26)
[2016-08-21] MEDS ORDERED: Morphine INJ* 2 MG/ML 1 ML SYRINGE IV PRN (10:28)
[2016-08-21] MEDS ORDERED: LORazepam TAB(*) 1 MG PO PRN (12:46)
[2016-08-21] MEDS: Morphine ORAL CONCENTRATE* 5 MG/0.25 ML ORAL.SYRIN SL PRN ×2 (13:08→18:41)
[2016-08-21] MEDS: LORazepam TAB(*) 0.5 MG PO PRN (18:52)
--- NOTE | 2016-08-21 21:03 | CONS ---
PALLIATIVE CARE CONSULTATION: DATE OF CONSULT: 08/21/16 PRIMARY CARE PHYSICIAN: Dr. Alexander Suazo. REFERRING PROVIDER FOR CONSULT: RASHARD Chaudhary HOSPITAL COURSE: This is a 71-year-old female with a past medical history of breast cancer, who was diagnosed with bony mets in 2011 and now liver and lung mets recently. The patient has been on chemo, presented to the emergency room on the for declining in her medical condition and worsening abdominal pain and distention. The patient also was complaining more shortness of breath, nausea, vomiting, and had a recent fall. She came to the emergency room. The patient was admitted initially under the oncology service. Infectious Disease consult was placed as well for management of antibiotics for concern for pneumonia, they recommended stopping antibiotics. These are likely URI symptoms and that her cough and shortness of breath could be from her effusion and/or her ascites. On my encounter, there are several family members including the , the primary healthcare proxy, and the 2 sons and they said over the past 4 to 6 weeks, she has been declining and over the past few days, she has had a significant decline where she is confused, she is not aware of what is going on, and she is mostly bedbound. She has not had any interest in eating or drinking very much at all, rarely only sips of liquids intermittently. On my encounter, she is restless, trying to pull off her nasal cannula, and appears in some discomfort, but unable to articulate this. We spoke at length regarding her eligibility for hospice and the family spoke with Dr. Fernandez about this and they would like her to be home and they know that the patient would like to be home as well. They live in [place] [facility] [place], so this [facility] be set up through [facility]. Otherwise, unable to obtain review of systems as the patient is awake, but is unable to follow commands or verbalize any meaningful interaction with me. PAST MEDICAL HISTORY: Breast cancer, diagnosed in 2001, status post partial mastectomy, radiation, chemo, metastasis to the bone in 2011 and now 2016 metastasis to the liver and lungs, now appears to have bone marrow infiltration and acute renal failure. INPATIENT MEDICATIONS: 1. Lorazepam 0.5 mg p.o. q.6 hours as needed. 2. Levothyroxine 100 mcg p.o. daily. 3. Morphine 2 mg every 4 hours as needed. 4. Omeprazole 40 mg p.o. b.i.d. 5. Oxycodone 5 mg p.o. q.6 hours as needed. ALLERGIES: 1. CLARITHROMYCIN, nausea and vomiting. 2. ADHESIVE TAPE, itching. 3. LEVOFLOXACIN, unknown. 4. NIACIN, flushing. 5. SIMVASTATIN, palpitations. FAMILY HISTORY: Reviewed and noncontributory. SOCIAL HISTORY: The patient lives at home with her , Hernandez Estes. She has 2 sons and several family members and siblings and grandchildren who are very involved in her care. Her MOLST form currently is a DNR and the second page has not yet been completed. REVIEW OF SYSTEMS: Unable to obtain due to the patient's somnolent state. PHYSICAL EXAM: Vitals: Temp 97.6, pulse rate 99, respiratory rate 14, oxygen saturation 97% on 2 L, blood pressure 134/44. General: Ill, frail-appearing female, in some [id number] discomfort and restlessness state. Head: Alopecia. Normocephalic. Pupils are dilated and reactive. Mildly icteric. Oropharynx: Mucous membranes are dry. Neck: Supple. No adenopathy. Cardiac: Tachycardic. Respiratory: Diminished breath sounds. No wheezes, rhonchi, or rales. Abdomen is distended, soft, and nontender. Extremities: +1 pretibial edema. Derm: With some mild jaundice appearance. Neurologic: The patient moving all extremities; however, unable to follow commands or have any verbal meaningful interaction. DIAGNOSTIC STUDIES/LAB DATA: White count is 13.7, hemoglobin 9.3, hematocrit 28 , and platelets 14. INR is 2.49. Sodium 130, potassium 5.3, chloride 102, bicarb 17, BUN 72, creatinine 2.34. Total bilirubin is 6.2, AST 513, ALT 187. ASSESSMENT AND PLAN: This is a 71-year-old female with past medical history of metastatic breast cancer, who presents with worsening abdominal pain and discomfort, found to be in liver failure, renal failure, and bone marrow involvement of her breast cancer as well. This makes her eligible for hospice. She does appear to be slightly uncomfortable at this time. The family wishes to take her home with hospice. I am transitioning her to oral morphine 5 mg sublingual q.1 hour as needed and we will increase her Ativan as well and discuss with the nurse to trial oral agents and to increase as needed for anticipation of discharge potentially tomorrow with hospice. The family does not want to send her home until hospice has enrolled her for further services. I also discontinued any further blood workup. I also had the fill out the second page of the MOLST form to reflect DNI, comfort measures and specifics of not returning to the hospital, no IV fluids, no feeding tube. Thank you for this consultation. We will follow along with you. PATIENT TIME: Greater than 60 minutes spent doing the consultation, more than half the time spent in direct patient contact. CC: Dr. Alexander Suazo* [id number]/CPS #: [id number] EMMIE
[2016-08-22] MEDS: Morphine ORAL CONCENTRATE* 5 MG/0.25 ML ORAL.SYRIN SL PRN ×2 (02:48→05:45)
[2016-08-22] MEDS: Levothyroxine TAB* 100 MCG TAB PO SCH ×2 (05:48→05:57)
[2016-08-22] MEDS: Omeprazole CAP* 20 MG PO SCH ×2 (05:56→07:51)
[2016-08-22 09:19] VITALS: BP 113/33
--- NOTE | 2016-08-23 04:00 | DS ---
SUMMARY: DATE OF ADMISSION: 08/19/16 DATE OF : The patient on 08/22/16 ATTENDING PROVIDER: Stuart Ng MD (dictated by RASHARD Ha) PRINCIPAL DIAGNOSIS: Metastatic breast cancer to multiple organs. DISCHARGE SUMMARY: The patient was found in bed lying comfortably without any significant breath or heart rate for approximately 3 minutes. Pupils were fixed and dilated. The family was around the bed and declined any type of autopsy. TIME OF : 1400 hours. RASHARD HA [id number] #: [id number] MTDD
== END 2016-08-22 13:45 | disposition expired | DRG 640 ==
LOC: ED 11:39 → MED 16:28
PROVIDERS: ADMIT Internal Medicine Hematology & Oncology; ATTEND Internal Medicine Hematology & Oncology
DX: R62.7 Adult failure to thrive (principal); K76.7 Hepatorenal syndrome; R18.0 Malignant ascites; R64 Cachexia; C50.911 Malignant neoplasm of unspecified site of right female breast; J91.0 Malignant pleural effusion; C78.7 Secondary malignant neoplasm of liver and intrahepatic bile duct; C78.00 Secondary malignant neoplasm of unspecified lung; C79.51 Secondary malignant neoplasm of bone; K72.90 Hepatic failure, unspecified without coma; C79.52 Secondary malignant neoplasm of bone marrow; K21.9 Gastro-esophageal reflux disease without esophagitis; M19.042 Primary osteoarthritis, left hand; M19.041 Primary osteoarthritis, right hand; F41.9 Anxiety disorder, unspecified; I25.10 Atherosclerotic heart disease of native coronary artery without angina pectoris; D64.9 Anemia, unspecified; Z66 Do not resuscitate; D69.6 Thrombocytopenia, unspecified; Z88.8 Allergy status to other drugs, medicaments and biological substances; Z88.1 Allergy status to other antibiotic agents; Z91.048 Other nonmedicinal substance allergy status; Z87.01 Personal history of pneumonia (recurrent); Z87.440 Personal history of urinary (tract) infections; Z90.710 Acquired absence of both cervix and uterus; Z87.891 Personal history of nicotine dependence; Z80.9 Family history of malignant neoplasm, unspecified; Z17.0 Estrogen receptor positive status [ER+]; Z68.21 Body mass index [BMI] 21.0-21.9, adult
CPT/HCPCS: 36415; 71010; 80048; 80053; 80076; 81003; 81015; 82550; 82553; 83605; 83615; 84484; 85025; 85060; 85610; 85730; 86140; 86850; 86900; 86901; 86922; 87040; 87086; 93005; 99222; 99232; A9270-GY; J0692; J1642; J2270; P9040